=== PATIENT | male | born 1970 | race Caucasian/White ===

== ENCOUNTER 2017-04-02 05:04 | Emergency (ER) | payer MEDICAID, MEDICARE ==
[~2017-04-02] VITALS: Ht 182.9 cm; Wt 87.0 kg
[2017-04-02] MEDS ORDERED: SODIUM CHLORIDE 0.9% 1,000 ML IV ONE (05:23)
[2017-04-02] MEDS ORDERED: LABETALOL HCL 20MG/4ML CARPUJECT IV ONE (05:30)
[2017-04-02] MEDS ORDERED: LABETALOL 5MG/ML SYR 20 MG/4 ML SYRINGE IV NR (05:45)
[2017-04-02 06:06] LABS: HEMOGLOBIN. 15.8 g/dL (14.0-18.0); MEAN CORPUSCULAR HEMOGLOBIN 33.1 pg (28.0-32.0); MEAN CORPUSCULAR VOLUME 96.4 fL (80.0-94.0); MEAN PLATELET VOLUME 8.4 fl (7.4-10.4); PLATELET 147 x1000/uL (130-400); RED BLOOD CELL COUNT 4.77 mill/uL (4.7-6.1); RED CELL DISTRIBUTION WIDTH 16.3 % (11.6-14.6)
[2017-04-02 06:15] LABS: CARBON DIOXIDE 21 mEq/L (21-32); CHLORIDE 104 mEq/L (98-107); CREATINE KINASE 386 IU/L (39-308); ETHANOL BLOOD < 10 mg/dL
[2017-04-02] MEDS ORDERED: PHENYTOIN SODIUM 1,000 MG in SODIUM CHLORIDE 0.9% 100 ML IV ONE (07:30)
[2017-04-02 07:40] LABS: PLATELET ESTIMATE NORMAL
[2017-04-02] MEDS ORDERED: KETOROLAC 30MG/ML VIAL IV ONE (09:15)
[2017-04-02 10:22] LABS: *AMPHETAMINES SCREEN URINE NEGATIVE (NEGATIVE); *BARBITURATES SCREEN URINE NEGATIVE (NEGATIVE); *BENZODIAZEPINES SCREEN URINE NEGATIVE (NEGATIVE); *COCAINE SCREEN URINE NEGATIVE (NEGATIVE); CANNABINOID URINE SCREEN NEGATIVE (NEGATIVE); METHADONE URINE SCREEN NEGATIVE (NEGATIVE); OPIATES URINE SCREEN NEGATIVE (NEGATIVE); PHENCYCLIDINE URINE SCREEN NEGATIVE (NEGATIVE)
[2017-04-02] MEDS ORDERED: TRAMADOL 50MG TABLET PO ONE (12:15)
[2017-04-02 12:24] VITALS: BP 147/55
== END 2017-04-02 12:26 | disposition home or self-care (01) ==
LOC: ER 05:04
DX: R56.9 Unspecified convulsions (principal); I10 Essential (primary) hypertension; Z91.14 Patient's other noncompliance with medication regimen; Z59.0 Homelessness
CPT/HCPCS: 36415; 70450; 80053; 80305; 82550; 82962; 85025; 93005; 96361; 96365; 96375; 99285; G0482; J1165; J1885; J3490; J7040; J7030; J7050

== ENCOUNTER 2017-05-11 19:18 | Emergency (ER) | payer MEDICARE, MEDICAID ==
[~2017-05-11] VITALS: Ht 182.9 cm; Wt 96.0 kg
[~2017-05-11 19:18] MED LIST: IOHEXOL-300 100 ML BOTTLE ONE; SODIUM CHLORIDE 0.9% 10ML VIAL ONE
[2017-05-11] MEDS ORDERED: BALANCED SALT IRRIG SOLN 15ML IO ONE (20:15)
[2017-05-11] MEDS ORDERED: KETOROLAC 60MG/2ML VIAL IM ONE (20:15)
[2017-05-11] MEDS ORDERED: FLUORESCEIN SODIUM 1MG/STRIP OP ONE (20:15)
[2017-05-11] MEDS ORDERED: TETRACAINE 0.5% OPHTH DROPS 4ML OP ONE (20:15)
[2017-05-11] MEDS ORDERED: KETOROLAC 30MG/ML VIAL IV ONE (23:00)
[2017-05-11 23:57] LABS: CHLORIDE 107 mEq/L (98-107)
[2017-05-12 00:02] LABS: CARBON DIOXIDE 27 mEq/L (21-32)
[2017-05-12] MEDS ORDERED: HYDROCODONE/ACETAMINOPHEN 5/325MG TABLET PO ONE (01:00)
[2017-05-12 02:10] VITALS: BP 134/75
== END 2017-05-12 02:24 | disposition home or self-care (01) ==
LOC: ER 20:03
DX: H00.033 Abscess of eyelid right eye, unspecified eyelid (principal); H54.61 Unqualified visual loss, right eye, normal vision left eye; F20.9 Schizophrenia, unspecified; I10 Essential (primary) hypertension; F17.200 Nicotine dependence, unspecified, uncomplicated; F14.10 Cocaine abuse, uncomplicated; F15.10 Other stimulant abuse, uncomplicated
CPT/HCPCS: 36415; 70460; 80048; 96372; 96374; 99285; A4216; J1885; Q9967

== ENCOUNTER 2018-11-30 13:27 | Emergency (ER) | payer MEDICARE, MEDICAID ==
[~2018-11-30] VITALS: Ht 180.3 cm; Wt 100.0 kg
[2018-11-30 15:18] LABS: CHLORIDE 98 mEq/L (98-107)
[2018-11-30 15:21] LABS: HEMATOCRIT. 50.1 % (42.0-52.0); HEMOGLOBIN. 17.1 g/dL (14.0-18.0); MEAN CORPUSCULAR HEMOGLOBIN 32.4 pg (28.0-32.0); MEAN CORPUSCULAR VOLUME 94.9 fL (80.0-94.0); MEAN PLATELET VOLUME 7.1 fl (7.4-10.4); PLATELET 149 x1000/uL (130-400); RED BLOOD CELL COUNT 5.28 mill/uL (4.7-6.1); RED CELL DISTRIBUTION WIDTH 15.5 % (11.6-14.6)
[2018-11-30 15:23] LABS: ETHANOL BLOOD < 10 mg/dL
[2018-11-30] MEDS ORDERED: KETOROLAC 30MG/ML VIAL IV STA (16:13)
[2018-11-30] MEDS ORDERED: ONDANSETRON HCL 4MG/2ML INJ IV STA (16:13)
[2018-11-30] MEDS ORDERED: AMLODIPINE 5MG TABLET PO ONE (17:30)
[2018-11-30] MEDS ORDERED: LEVETIRACETAM 500MG TABLET PO ONE (18:00)
[2018-11-30] MEDS ORDERED: LACTULOSE 20G/30ML UDC PO ONE (18:00)
[2018-11-30 18:27] LABS: CLARITY URINE CLOUDY (CLEAR); COLOR URINE YELLOW (YELLOW); KETONES URINE NEGATIVE (NEGATIVE); LEUKOCYTE ESTERASE URINE NEGATIVE (NEGATIVE); NITRITE URINE NEGATIVE (NEGATIVE); OCCULT BLOOD URINE 1+ (NEGATIVE); PROTEIN URINE 1+ (NEGATIVE); SPECIFIC GRAVITY URINE 1.022 (1.005-1.030)
[2018-11-30 18:29] LABS: PLATELET ESTIMATE NORMAL
[2018-11-30 18:35] LABS: *AMPHETAMINES SCREEN URINE NEGATIVE (NEGATIVE); *BARBITURATES SCREEN URINE NEGATIVE (NEGATIVE)
[2018-11-30 18:36] LABS: *BENZODIAZEPINES SCREEN URINE NEGATIVE (NEGATIVE); *COCAINE SCREEN URINE PRESUMTIVE POSITIVE (NEGATIVE); CANNABINOID URINE SCREEN NEGATIVE (NEGATIVE); METHADONE URINE SCREEN NEGATIVE (NEGATIVE); OPIATES URINE SCREEN NEGATIVE (NEGATIVE); PHENCYCLIDINE URINE SCREEN NEGATIVE (NEGATIVE)
[2018-11-30 18:45] VITALS: BP 155/87
== END 2018-11-30 18:45 | disposition home or self-care (01) ==
LOC: ER 13:27
DX: G40.802 Other epilepsy, not intractable, without status epilepticus (principal); S00.512A Abrasion of oral cavity, initial encounter; I10 Essential (primary) hypertension; F20.9 Schizophrenia, unspecified; F14.10 Cocaine abuse, uncomplicated; F15.10 Other stimulant abuse, uncomplicated; R32 Unspecified urinary incontinence; X58.XXXA Exposure to other specified factors, initial encounter; Y93.89 Activity, other specified; Y92.89 Other specified places as the place of occurrence of the external cause; Y99.8 Other external cause status
CPT/HCPCS: 36415; 70450; 80053; 80305; 80320; 81003; 82140; 85025; 96374; 96375; 99284; J1885; J2405; G0480